=== PATIENT | female | born 1955 | race Caucasian/White ===

== ENCOUNTER 2016-10-06 12:43 | Emergency (ER) | payer BC ==
[2016-10-06] MEDS ORDERED: LET GEL TOPICAL 1 EA SYR TP ONE (12:51)
[2016-10-06 12:54] VITALS: BP 156/88; PULSE 67; RESP 16; TEMP 97.9; O2SAT 96
--- NOTE | 2016-10-06 13:02 | EDPHY ---
H & P Stated Complaint: R elbow laceration and pain with movement after fall on concrete today. Time Seen by Provider: 10/06/16 12:57 HPI/ROS: CHIEF COMPLAINT: Elbow pain HISTORY OF PRESENT ILLNESS: Patient is a 61-year-old healthy female who tripped while carrying a laundry basket. She fell on top of the basket but her elbow hit the cement floor. She had pain immediately and a small laceration. She denies other injuries to head neck or back. She has normal range of motion and sensation. REVIEW OF SYSTEMS: Constitutional: denies: chills, fever, recent illness, recent injury EENTM: denies: blurred vision, double vision, nose congestion Respiratory: denies: cough, shortness of breath Cardiac: denies: chest pain, irregular heart rate, lightheadedness, palpitations Gastrointestinal/Abdominal: denies: abdominal pain, diarrhea, nausea, vomiting, blood streaked stools Genitourinary: denies: dysuria, frequency, hematuria, pain Musculoskeletal: See HPI Skin: denies: lesions, rash, jaundice, bruising Neurological: denies: headache, numbness, paresthesia, tingling, dizziness, weakness Hematologic/Lymphatic: denies: blood clots, easy bleeding, easy bruising Immunologic/allergic: denies: HIV/AIDS, transplant EXAM: GENERAL: Well-appearing, well-nourished and in no acute distress. HEAD: Atraumatic, normocephalic. EYES: Pupils equal round and reactive to light, extraocular movements intact, sclera anicteric, conjunctiva are normal. ENT: TMs normal, nares patent, oropharynx clear without exudates. Moist mucous membranes. NECK: Normal range of motion, supple without lymphadenopathy or JVD. LUNGS: Breath sounds clear to auscultation bilaterally and equal. No wheezes rales or rhonchi. HEART: Regular rate and rhythm without murmurs, rubs or gallops. ABDOMEN: Soft, nontender, normoactive bowel sounds. No guarding, no rebound. No masses appreciated. BACK: No CVA tenderness, no spinal tenderness, step-offs or deformities EXTREMITIES: Normal range of motion, no pitting or edema. No pain with rotation or lifting. No clubbing or cyanosis. NEUROLOGICAL: Cranial nerves II through XII grossly intact. Normal speech, normal gait. 5/5 strength, normal movement in all extremities, normal sensation PSYCH: Normal mood, normal affect. SKIN: 1 cm laceration to right elbow over the greater condyle. No effusion, no erythema. Source: Patient Exam Limitations: No limitations - Personal History Current Tetanus Diphtheria and Acellular Pertussis (TDAP): Yes Tetanus Vaccine Date: within 10 years - Medical/Surgical History Hx Asthma: No Hx Chronic Respiratory Disease: No Hx Diabetes: No Hx Cardiac Disease: No Hx Renal Disease: No Hx Cirrhosis: No Hx Alcoholism: No Hx HIV/AIDS: No Hx Splenectomy or Spleen Trauma: No Other PMH: hypothyroidism, hyperlipidemia - Family History Significant Family History: No pertinent family hx - Social History Smoking Status: Never smoked Alcohol Use: Sober Drug Use: None Constitutional: Initial Vital Signs Temperature (C) 36.6 C 10/06/16 12:45 Heart Rate 67 10/06/16 12:45 Respiratory Rate 16 10/06/16 12:45 Blood Pressure 156/88 H 10/06/16 12:45 O2 Sat (%) 96 10/06/16 12:45 O2 Delivery Mode Room Air Allergies/Adverse Reactions: No Known Allergies Allergy (Verified 10/06/16 12:54) Home Medications: Medication Instructions Recorded Atorvastatin Calcium 10/06/16 Levothyroxine 10/06/16 Medical Decision Making - Diagnostics Imaging: Discussed imaging studies w/ inbound call center representative Radiologist Procedures: Procedure: Laceration repair. Verbal consent was obtained from the patient. The 1.5 cm right elbow laceration was anesthetized with LET ointment and then 0.5% bupivacaine. locally infiltrated. The wound was irrigated copiously according to protocol, draped and explored to its base. It was approximately 1/2 cm deep. There was likely some involvement of the bursa. No tendon, nerve, or vascular injury was identified when explored through full range of motion. No foreign body was identified. The wound was repaired with 5.0 Prolene, 3 sutures, interrupted. The wound repair was simple without wound margin revisement or multiple flap alignment. The procedure was performed by myself. A dressing was then placed with sterile gauze and bacitracin. ED Course/Re-evaluation: Discussed the x-ray results. The patient is reassured. She tolerated laceration repair well. I do believe that there is some bursa involvement and counseled her to keep it in a compression wrap while it heals. Also encouraged ice and elevation. She understands and agrees with this plan. She declines any further workup or testing at this time. Discussed suture care and removal. Differential Diagnosis: Partial list of the Differential diagnosis considered include but were not limited to; laceration, contusion bursitis and although unlikely based on the history and physical exam, I also considered fracture, dislocation. I discussed these differential diagnoses and the plan with the patient as well as the usual and expected course. The patient understands that the diagnosis is provisional and that in medicine we are not always correct and that further workup is often warranted. Usual and customary warnings were given. All of the patient's questions were answered. The patient was instructed to return to the emergency department should the symptoms at all worsen or return, otherwise to followup with the physician as we discussed. - Data Points Medications Given: Discontinued Medications Tetracaine/Epinephrine/Lidocaine (Let Gel Topical) 1 ea TP EDNOW ONE Stop: 10/06/16 12:52 Last Admin: 10/06/16 12:56 Dose: 1 ea Departure - Departure Disposition: Home, Routine, Self-Care Clinical Impression: Laceration of elbow, right Qualifiers: Encounter type: initial encounter Qualified Code(s): S51.011A - Laceration without foreign body of right elbow, initial encounter Condition: Good Instructions: Care For Your Stitches (ED), Laceration (ED) Additional Instructions: Continue to use the Manny bandage as discussed, have your sutures removed in 10 days. Referrals: Doctor Not,On Staff, [Medical Doctor] - As per Instructions Steve Solano MD [Medical Doctor] - As per Instructions
== END 2016-10-06 13:40 | disposition home or self-care (01) ==
LOC: CED 12:43
PROC: 0HQKXZZ Repair Right Lower Leg Skin, External Approach (ICD-10-PCS; principal; 2016-10-06)
DX: S51.011A Laceration without foreign body of right elbow, initial encounter (principal); W01.198A Fall on same level from slipping, tripping and stumbling with subsequent striking against other object, initial encounter
CPT/HCPCS: 73080-PO

== ENCOUNTER → 2016-12-12 | Outpatient (CLI) | payer BC | LOC: CIMAGING 11:06 | DX: Z12.31 Encounter for screening mammogram for malignant neoplasm of breast (principal); Z80.3 Family history of malignant neoplasm of breast | CPT/HCPCS: G0202 ==

== ENCOUNTER → 2017-12-15 | Outpatient (CLI) | payer OTHER | LOC: CIMAGING 11:13 | PROVIDERS: ATTEND Obstetrics & Gynecology | DX: Z12.31 Encounter for screening mammogram for malignant neoplasm of breast (principal); Z80.3 Family history of malignant neoplasm of breast ==

== ENCOUNTER → 2017-12-28 | Outpatient (CLI) | payer OTHER | LOC: CIMAGING 13:12 | PROVIDERS: ATTEND Obstetrics & Gynecology | DX: R92.8 Other abnormal and inconclusive findings on diagnostic imaging of breast (principal); R92.2 Inconclusive mammogram ==

== ENCOUNTER 2018-05-26 12:20 | Emergency (ER) | payer OTHER ==
--- NOTE | 2018-05-26 12:52 | EDPHY ---
H & P Stated Complaint: Suprapubic pain and dysuria since last night after dinner . Time Seen by Provider: 05/26/18 12:45 HPI/ROS: CHIEF COMPLAINT: Suprapubic pain and dysuria HISTORY OF PRESENT ILLNESS: Patient is a 63-year-old healthy female who comes to the emergency department complaining of suprapubic pain and dysuria that began last night. She has not had any nausea vomiting or diarrhea. No fevers. No rash. She has a history of hysterectomy and oophorectomy. No vaginal bleeding or discharge. No pain in her right or left lower quadrant. She does have a history of diverticulosis. She does have mild chronic low back pain that she states is from her scoliosis. No CVA pain and no change in her pain level. Severity: Moderate Modifying factors: Pain worsened with urination REVIEW OF SYSTEMS: Constitutional: denies: chills, fever, recent illness, recent injury EENTM: denies: blurred vision, double vision, nose congestion Respiratory: denies: cough, shortness of breath Cardiac: denies: chest pain, irregular heart rate, lightheadedness, palpitations Gastrointestinal/Abdominal: denies: abdominal pain, diarrhea, nausea, vomiting, blood streaked stools Genitourinary: See HPI Musculoskeletal: denies: joint pain, muscle pain Skin: denies: lesions, rash, jaundice, bruising Neurological: denies: headache, numbness, paresthesia, tingling, dizziness, weakness Hematologic/Lymphatic: denies: blood clots, easy bleeding, easy bruising Immunologic/allergic: denies: HIV/AIDS, transplant 10 systems reviewed and negative except as noted EXAM: GENERAL: Well-appearing, well-nourished and in no acute distress. HEAD: Atraumatic, normocephalic. EYES: Pupils equal round and reactive to light, extraocular movements intact, sclera anicteric, conjunctiva are normal. ENT: TMs normal, nares patent, oropharynx clear without exudates. Moist mucous membranes. NECK: Normal range of motion, supple without lymphadenopathy or JVD. LUNGS: Breath sounds clear to auscultation bilaterally and equal. No wheezes rales or rhonchi. HEART: Regular rate and rhythm without murmurs, rubs or gallops. ABDOMEN: Mild suprapubic tenderness, no right lower quadrant tenderness or left lower quadrant tenderness, normoactive bowel sounds. No guarding, no rebound. No masses appreciated. BACK: No CVA tenderness, no spinal tenderness, step-offs or deformities EXTREMITIES: Normal range of motion, no pitting or edema. No clubbing or cyanosis. NEUROLOGICAL: Cranial nerves II through XII grossly intact. Normal speech, normal gait. 5/5 strength, normal movement in all extremities, normal sensation , normal reflexes PSYCH: Normal mood, normal affect. SKIN: Warm, dry, normal turgor, no visible rashes or lesions. Source: Patient Exam Limitations: No limitations - Personal History Tetanus Vaccine Date: within 10 years - Medical/Surgical History Hx Asthma: No Hx Chronic Respiratory Disease: No Hx Diabetes: No Hx Cardiac Disease: No Hx Renal Disease: No Hx Cirrhosis: No Hx Alcoholism: No Hx HIV/AIDS: No Hx Splenectomy or Spleen Trauma: No Other PMH: hypothyroidism, hyperlipidemia. hysterectomy - Family History Significant Family History: No pertinent family hx - Social History Smoking Status: Never smoked Alcohol Use: None Constitutional: Initial Vital Signs Temperature (C) 36.7 C 05/26/18 12:44 Heart Rate 74 05/26/18 12:44 Respiratory Rate 18 05/26/18 12:44 Blood Pressure 161/97 H 05/26/18 12:44 O2 Sat (%) 96 05/26/18 12:44 O2 Delivery Mode Room Air Allergies/Adverse Reactions: No Known Allergies Allergy (Verified 05/26/18 12:48) Home Medications: Medication Instructions Recorded Atorvastatin Calcium 10/06/16 Levothyroxine 10/06/16 Amoxicillin/Clavulanate Pot 875 mg PO BID #20 tab 05/26/18 [Augmentin 875Mg] Medical Decision Making ED Course/Re-evaluation: 1:12 p.m. patient's urinalysis is unremarkable. Will obtain lab work and CT scan to evaluate for diverticulitis. 2:50 p.m. We discussed the patient's CT results. Her abdominal exam remains benign. She is afebrile and has stable vital signs. She states that she was treated 2 years ago for diverticulitis with Augmentin and did well at home. She would prefer this treatment again. Discussed indications for returning to the emergency department. Differential Diagnosis: Partial list of the Differential diagnosis considered include but were not limited to; urinary tract infection, diverticulitis and although unlikely based on the history and physical exam, I also considered kidney stone, ischemia , abscess. I discussed these differential diagnoses and the plan with the patient as well as the usual and expected course. The patient understands that the diagnosis is provisional and that in medicine we are not always correct and that further workup is often warranted. Usual and customary warnings were given. All of the patient's questions were answered. The patient was instructed to return to the emergency department should the symptoms at all worsen or return, otherwise to followup with the physician as we discussed. - Data Points Medications Given: Discontinued Medications Amoxicillin/Clavulanate Potassium (Augmentin 875mg) 875 mg PO EDNOW ONE PRN Reason: Protocol Stop: 05/26/18 14:51 Last Admin: 05/26/18 15:03 Dose: 875 mg Hydromorphone HCl (Dilaudid) 0.5 mg IVP EDNOW ONE Stop: 05/26/18 13:13 Last Admin: 05/26/18 14:03 Dose: Not Given Sodium Chloride (Ns) 1,000 mls @ 0 mls/hr IV EDNOW ONE; Wide Open PRN Reason: Protocol Stop: 05/26/18 13:13 Last Admin: 05/26/18 13:53 Dose: 1,000 mls Ketorolac Tromethamine (Toradol) 30 mg IVP EDNOW ONE Stop: 05/26/18 13:46 Last Admin: 05/26/18 13:49 Dose: 30 mg Point of Care Test Results: CBC CBC Collection Date 05/26/18 CBC Collection Time 13:15 WBC 7.03 RBC 4.46 HGB 14.5 HCT 42.1 PLT 148 Neut # 5.52 Neut 78.6 LYMPH # 0.87 LYMPH 12.4 MCV 94.4 Chemistry 05/26/18 13:25 POC Sodium 142 mEq/L mEq/L (135-145) POC Potassium 3.7 mEq/L mEq/L (3.3-5.0) POC Chloride 106.0 mEq/L mEq/L (97-110) POC Total CO2 26 mEq/L mEq/L (22-31) POC BUN 11 mg/dL mg/dL (7-23) POC Creatinine 0.8 mg/dL mg/dL (0.6-1.0) POC Glucose 96 mg/dL mg/dL (70-100) POC Calcium 9.5 mg/dL mg/dL (8.5-10.4) POC Total Bilirubin 1.0 mg/dL mg/dL (0.1-1.4) POC AST 29 IU/L IU/L (14-46) POC ALT 32 IU/L IU/L (9-52) POC Alk Phosphatase 66 IU/L IU/L (38-126) POC Total Protein 7.1 g/dL g/dL (6.3-8.2) POC Albumin 4.0 g/dL g/dL (3.5-5.0) Urine Dip Collection Date 05/26/18 Collection Time 13:00 Specific [place] (1.002-1.030) 1.015 PH (5.0-7.5) 7.5 Leukocytes (Negative) Negative Nitrites (Negative) Negative Protein (Negative) Negative Glucose (Negative) Negative Ketones (Negative) Negative Urobilnogen (0.2-1.0 EU) 0.2 Bilirubin (Negative) Negative Blood (Negative) Negative Departure - Departure Disposition: Home, Routine, Self-Care Clinical Impression: Diverticulitis Condition: Fair Instructions: Diverticulitis (ED) Referrals: NONE *PRIMARY CARE P,. [Primary Care Provider] - As per Instructions Mary Aguirre MD [Medical Doctor] - As per Instructions Prescriptions: Amoxicillin/Clavulanate Pot [Augmentin 875Mg] 875 mg PO BID #20 tab
[2018-05-26] MEDS ORDERED: NS 1,000 ML IV ONE (13:12)
[2018-05-26] MEDS ORDERED: HYDROmorphONE/DILAUDID 2 MG/ML INJ IVP ONE (13:12)
[2018-05-26] MEDS ORDERED: IOPAMIDOL (ISOVUE-300) 100 ML BTL ONE (13:18)
[2018-05-26] MEDS ORDERED: KETOROLAC 30 MG/1 ML SDV IVP ONE (13:45)
[2018-05-26 14:45] VITALS: BP 152/85
[2018-05-26] MEDS ORDERED: AMOXICILLIN/CLAVULANATE POT 875/125 MG TAB PO ONE (14:50)
== END 2018-05-26 15:16 | disposition home or self-care (01) ==
LOC: CED 12:20
DX: K57.32 Diverticulitis of large intestine without perforation or abscess without bleeding (principal); E78.5 Hyperlipidemia, unspecified; E03.9 Hypothyroidism, unspecified; E86.9 Volume depletion, unspecified
CPT/HCPCS: 74177-PO; 80053-ER; 85025-QW-ER; 96361-ER; 96374-ER; 99285-ER; J1170; J1885; Q9967